=== PATIENT | female | born 1985 | race Caucasian/White ===

== ENCOUNTER 2017-07-17 14:22 | Emergency (ER) | payer MEDICAID ==
[2017-07-17 14:27] VITALS: BP 129/76
[2017-07-17] MEDS ORDERED: SODIUM CHLORIDE FLUSH 0.9% 10 ML SYRINGE IVP ONE (14:35)
--- NOTE | 2017-07-17 14:48 | ED Physician Documentation ---
PD HPI HEENT - Stated complaint Stated Complaint: THROAT PX/FEMALE - Chief complaint Chief Complaint: Heent - History obtained from History obtained from: Patient - History of Present Illness Timing - onset: Other (She has a few issues, sore throat for a week with fevers and some runny nose but no cough. She feels like her voice is different. She also has vaginal discharge and itching swelling of the labia and wonders if she might have a yeast infection. She is depressed and admits to intermittent suicidal ideation without plan, she is following up with a counselor and declines to talk with the social organization professor about that. She is not acutely suicidal.) Review of Systems Constitutional: reports: Fever, Chills, Fatigue Ears: denies: Loss of hearing, Ear pain Nose: reports: Rhinorrhea / runny nose, Congestion Throat: reports: Sore throat PD PAST MEDICAL HISTORY - Past Medical History Past Medical History: No - Present Medications Home Medications: Ambulatory Orders Medication Instructions Recorded Confirmed Ibuprofen [Motrin] 800 mg PO Q8H PRN #30 tablet 07/17/17 Metronidazole [Flagyl] 500 mg PO BID #14 tablet 07/17/17 Sertraline HCl [Zoloft] 20 mg PO DAILY 07/17/17 07/17/17 - Allergies Allergies/Adverse Reactions: Allergies Allergy/AdvReac Type Severity Reaction Status Date / Time No Known Drug Allergies Allergy Verified 07/17/17 14:27 - Social History Smoking Status: Current every day smoker Does the pt have substance abuse?: Yes Substance Use and Type: Meth PD ED PE NORMAL - Vitals Vital signs reviewed: Yes - General General: Alert and oriented X 3, No acute distress - HEENT HEENT: Other (Tonsils are red and swollen with ulcers but no exudates, mild anterior cervical adenopathy. TMs are normal.) - Neck Neck: Supple, no meningeal sign, No bony TTP - Cardiac Cardiac: RRR, No murmur - Respiratory Respiratory: No respiratory distress, Clear bilaterally - Abdomen Abdomen: Non tender - Derm Derm: No rash - Neuro Neuro: Alert and oriented X 3, Normal speech - Psych Psych: Normal mood, Normal affect Results - Vitals Vitals: Vital Signs - 24 hr 07/17/17 14:23 Temperature 37.0 C Heart Rate 103 H Respiratory 16 Rate Blood Pressure 129/76 O2 Saturation 99 Oxygen O2 Source Room air - Labs Labs: Microbiology 07/17/17 15:05 Wet Prep - Final Cervix 07/17/17 15:05 MIGEL Preparation - Final Other - Vaginal Laboratory Tests 07/17/17 07/17/17 14:30 15:15 Urine Color DK. ORANGE Urine Clarity CLOUDY Urine pH Not Reportable Ur Specific [place] Not Reportable Urine Protein Not Reportable Urine Glucose (UA) NEGATIVE Urine Ketones Not Reportable Urine Occult Blood NEGATIVE Urine Nitrite NEGATIVE Urine Bilirubin Not Reportable Urine Urobilinogen Not Reportable Ur Leukocyte Esterase TRACE H Ur Microscopic Review INDICATED Urine Culture Comments Not Reportable Urine HCG, Qual NEGATIVE Group A Strep Rapid Negative Procedures - Abscess I&D (location) R buttock Preparation: Chlorhexadine, Lidocaine 1%, Other (done with Lila Diaz RN) Incision: Incised with scalpel. No: Purulent drainage (nothing, just ?scar tissue) Other: Pt tolerated well, Dressing applied PD MEDICAL DECISION MAKING - ED course ED course: Call your doctor to arrange a follow-up appointment, make the next available appointment. In the interim, return anytime if worse or if new symptoms develop. Departure - Departure Disposition: 01 Home, Self Care Clinical Impression: Bacterial vaginosis, Viral pharyngitis Condition: Good Record reviewed to determine appropriate education?: Yes Instructions: ED Pharyngitis Viral Report Pending, ED Vaginosis Bacterial Follow-Up: [facility] [Provider Group] Prescriptions: Ibuprofen [Motrin] 800 mg PO Q8H PRN #30 tablet PRN Reason: PAIN &/OR FEVER Metronidazole [Flagyl] 500 mg PO BID #14 tablet
[2017-07-17 15:39] LABS: RAPID STREP SCREEN REAGENT QC YELLOW (YELLOW)
[2017-07-17 15:44] LABS: HCG UR QUAL NEGATIVE
[2017-07-17 15:47] LABS: UA w/ MICROSCOPIC CHARGE YES
[2017-07-17 16:10] LABS: BILIRUBIN,URINE NEGATIVE (NEGATIVE); PH,URINE 5.5 PH (5.0-7.5); WBC,URINE 0-3 /HPF (0-5)
[2017-07-17 16:11] LABS: UR CULTURE IF IND INDICATED
[2017-07-19 18:06] LABS: C.TRACHOMATIC RNA TMA THROAT NOT DETECTED; N.GONORRHOEAE RNA TMA THROAT NOT DETECTED
--- NOTE | 2017-07-22 08:06 | ED Physician Documentation ---
ED Addendum - Addendum Addendum: 07/22/17 08:05 Please disregard the procedure note for an incision and drainage of abscess, it was documented on the wrong chart.
== END 2017-07-17 16:30 | disposition home or self-care (01) ==
LOC: ED 14:22
DX: N76.0 Acute vaginitis (principal); J02.8 Acute pharyngitis due to other specified organisms; B97.89 Other viral agents as the cause of diseases classified elsewhere; F17.200 Nicotine dependence, unspecified, uncomplicated
CPT/HCPCS: 10060; 81001; 81003; 81025; 87070; 87086; 87210; 87220; 87430; 87491; 87591; 99283